=== PATIENT | female | born 1970 | race Caucasian/White ===

== ENCOUNTER → 2023-10-15 | Outpatient (CLI) | payer BC ==
[2023-10-15 12:21] LABS: BASO # 0.02 K/mm3 (0.02-0.10); EOS # 0.13 K/mm3 (0.04-0.40); HEMATOCRIT 46.4 % (37.0-47.0); HEMOGLOBIN 15.3 g/dL (12.5-16.0); LYMPH# 1.58 K/mm3 (1.50-4.00); MEAN CELL VOLUME 101 fl (78-100); MEAN CORPUSCULAR HEMOGLOBIN 33 pg (27-31); MEAN CORPUSCULAR HGB CONC 33 g/dL (33-37); MEAN PLATELET VOLUME 9.2 fl (7.4-10.4); MONO # 0.52 K/mm3 (0.20-0.80); PLATELET COUNT 234 K/mm3 (130-400); RED BLOOD COUNT 4.59 M/mm3 (4.10-5.30); RED CELL DISTRIBUTION WIDTH 13.1 % (11.5-14.5); WHITE BLOOD COUNT 6.4 K/mm3 (4.8-10.8)
[2023-10-15 12:22] LABS: ALBUMIN 3.8 g/dL (3.5-5.0)
[2023-10-15 12:24] LABS: TOTAL PROTEIN 6.7 g/dL (6.4-8.3)
[2023-10-15 12:26] LABS: TOTAL BILIRUBIN 0.3 mg/dL (0.2-1.2)
[2023-10-15 12:30] LABS: DIRECT BILIRUBIN 0.2 mg/dL (0.0-0.5)
== END ==
LOC: LAB 11:57
PROVIDERS: Nurse Practitioner
DX: E78.5 Hyperlipidemia, unspecified (principal); E55.9 Vitamin D deficiency, unspecified; Z79.899 Other long term (current) drug therapy

== ENCOUNTER → 2023-12-02 | Outpatient (CLI) | payer BC | LOC: LAB 09:33 | DX: R73.03 Prediabetes (principal) ==

== ENCOUNTER → 2024-03-11 | Outpatient (CLI) | payer BC | LOC: LAB 17:21 | DX: E03.9 Hypothyroidism, unspecified (principal) ==

== ENCOUNTER → 2024-03-29 | Outpatient (CLI) | payer BC ==
[2024-03-29 13:06] LABS: BASO # 0.03 K/mm3 (0.02-0.10); EOS # 0.15 K/mm3 (0.04-0.40); EOS % 2.2 % (1.0-5.0); HEMATOCRIT 43.8 % (37.0-47.0); HEMOGLOBIN 14.7 g/dL (12.5-16.0); LYMPH# 2.11 K/mm3 (1.50-4.00); MEAN CELL VOLUME 100 fl (78-100); MEAN CORPUSCULAR HEMOGLOBIN 34 pg (27-31); MEAN CORPUSCULAR HGB CONC 34 g/dL (33-37); MEAN PLATELET VOLUME 8.9 fl (7.4-10.4); MONO # 0.67 K/mm3 (0.20-0.80); NEU # 3.83 K/mm3 (1.40-6.50); PLATELET COUNT 241 K/mm3 (130-400); RED BLOOD COUNT 4.39 M/mm3 (4.10-5.30); RED CELL DISTRIBUTION WIDTH 13.5 % (11.5-14.5); WHITE BLOOD COUNT 6.8 K/mm3 (4.8-10.8)
[2024-03-29 13:12] LABS: ALBUMIN 3.9 g/dL (3.5-5.0)
[2024-03-29 13:14] LABS: TOTAL PROTEIN 6.8 g/dL (6.4-8.3)
[2024-03-29 13:16] LABS: TOTAL BILIRUBIN 0.3 mg/dL (0.2-1.2)
[2024-03-29 13:20] LABS: DIRECT BILIRUBIN 0.1 mg/dL (0.0-0.5)
== END ==
LOC: LAB 12:47
DX: Z79.899 Other long term (current) drug therapy (principal)

== ENCOUNTER → 2024-04-07 | Outpatient (CLI) | payer BC ==
[2024-04-07 10:54] LABS: URINE WBC 0 /hpf (0-3)
[2024-04-07 11:39] LABS: URINE APPEARANCE CLEAR (CLEAR); URINE BILIRUBIN NEGATIVE (NEGATIVE); URINE BLOOD TRACE (NEGATIVE); URINE COLOR YELLOW (YELLOW); URINE GLUCOSE NEGATIVE (NEGATIVE); URINE KETONE NEGATIVE (NEGATIVE); URINE LEUKOCYTE ESTERASE NEGATIVE (NEGATIVE); URINE NITRATE NEGATIVE (NEGATIVE); URINE PROTEIN(semi-quant) NEGATIVE (NEGATIVE)
== END ==
LOC: LAB 10:43
PROVIDERS: Nurse Practitioner
DX: M54.50 Low back pain, unspecified (principal)

== ENCOUNTER → 2024-04-29 | Outpatient (CLI) | payer BC ==
[2024-04-29 13:39] LABS: URINE WBC 0 /hpf (0-3)
[2024-04-29 14:46] LABS: PH-URINE 6.5 (5.0 - 8.0); URINE APPEARANCE CLEAR (CLEAR); URINE BILIRUBIN NEGATIVE (NEGATIVE); URINE BLOOD NEGATIVE (NEGATIVE); URINE COLOR LIGHT YELLOW (YELLOW); URINE GLUCOSE NEGATIVE (NEGATIVE); URINE KETONE NEGATIVE (NEGATIVE); URINE LEUKOCYTE ESTERASE NEGATIVE (NEGATIVE); URINE NITRATE NEGATIVE (NEGATIVE); URINE PROTEIN(semi-quant) NEGATIVE (NEGATIVE)
== END ==
LOC: LAB 13:31
PROVIDERS: Nurse Practitioner
DX: R31.29 Other microscopic hematuria (principal); M25.571 Pain in right ankle and joints of right foot; E55.9 Vitamin D deficiency, unspecified

== ENCOUNTER → 2024-05-17 | Outpatient (CLI) | payer BC | LOC: RAD 12:30 | DX: M19.071 Primary osteoarthritis, right ankle and foot (principal); S93.491A Sprain of other ligament of right ankle, initial encounter; X58.XXXA Exposure to other specified factors, initial encounter ==